=== PATIENT | female | born 1940 | race African-American/Black ===

== ENCOUNTER 2024-11-28 11:10 | Emergency (ER) | payer OTHER ==
[~2024-11-28] VITALS: Ht 167.6 cm; Wt 120.0 kg
[~2024-11-28 11:10] MED LIST: ALBU2.5V13 IH; ALBU6.7H15 INH; AMLO10TA80 MT; DABI150C PO; ESTR1PAT63 TD; FLUT15.844 BOTHNSTRLS; FURO40TA5 MT; HYDR-459 MT; HYDR2TAB7 MT; ISOS60TA76 MT; LYR25 MT; OMEP20CA14 MT; TOFA5TAB MT
[2024-11-28] MEDS: PIPERACILLIN/TAZO 3.375G/50ML 50 ML IV ONE (11:15)
[2024-11-28 11:30] VITALS: PULSE 96; RESP 36; O2SAT 98
[2024-11-28] MEDS: ALBUTEROL (0.083%) 2.5MG/3ML NEB HHN SCH (11:30)
[2024-11-28] MEDS: IPRATROPIUM BROMIDE (0.02%) 0.5MG/2.5ML NEB HHN STA (11:30)
[2024-11-28] MEDS: VANCOMYCIN 1G PREMIX 200 ML IV ONE (11:52)
[2024-11-28] MEDS: METHYLPREDNISOLONE SOD SUCC 125MG/2ML (ACT-O-VIAL) IV STA (11:52)
[2024-11-28 11:55] VITALS: PULSE 98; RESP 20; O2SAT 100
[2024-11-28 12:14] VITALS: PULSE 97; RESP 15; O2SAT 100
[2024-11-28 12:16] LABS: CHLORIDE 106 mEq/L (98-107); POTASSIUM 4.5 mEq/L (3.5-5.1); SODIUM 142 mEq/L (136-145)
[2024-11-28 12:17] LABS: CALCIUM 9.3 mg/dL (8.7-10.4); CARBON DIOXIDE 27 mEq/L (21-32)
[2024-11-28 12:20] LABS: BASOPHILS % 0.3 % (0.0-2.0); EOSINOPHILS % 0.4 % (0.0-5.0); HEMATOCRIT. 44.6 % (36.0-48.0); HEMOGLOBIN. 14.9 g/dL (12.0-16.0); LYMPHOCYTES % 10.9 % (20.0-50.0); MEAN CORPUSCULAR HEMOGLOBIN 31.3 pg (28.0-32.0); MEAN CORPUSCULAR HGB CONC 33.5 g/dL (31.0-37.0); MEAN CORPUSCULAR VOLUME 93.4 fL (81.0-99.0); MEAN PLATELET VOLUME 8.7 fl (7.4-10.4); MONOCYTES % 14.4 % (2.0-8.0); PLATELET 156 x1000/uL (130-400); RED BLOOD CELL COUNT 4.77 mill/uL (4.2-5.4); RED CELL DISTRIBUTION WIDTH 15.2 % (11.6-14.6); WHITE BLOOD COUNT 6.6 x1000/uL (4.5-11.0)
[2024-11-28 12:22] LABS: GLUCOSE 89 mg/dL (70-105); UREA NITROGEN BLOOD 15 mg/dL (9-23)
[2024-11-28 12:23] LABS: TROPONIN I HIGH SENSITIVITY 10 ng/L (3.0-34)
[2024-11-28 12:24] LABS: ALANINE AMINOTRANSFERASE 12 IU/L (10-49); ALBUMIN 4.3 g/dL (3.2-4.8); ASPARTATE AMINOTRANSFERASE 36 IU/L (<34); BILIRUBIN DIRECT 0.2 mg/dL (<=3.0); BILIRUBIN TOTAL 0.8 mg/dL (0.1-1.0); PROTEIN TOTAL 6.9 g/dL (6.0-8.3)
[2024-11-28] MEDS: SODIUM CHLORIDE 0.9% 1,000 ML IV ONE (12:26)
[2024-11-28 12:28] LABS: BG CARBOXYHEMOGLOBIN 2.2 % (0.5-1.5); BG DEOXYHEMOGLOBIN 2.8 % (0.0-5.0); BG FRACTION INSPIRED OXYGEN 60; BG HCO3 ACT 28.8 mmol/L (21.0-28.0); BG OXYGEN SATURATION 97.1 % (94.0-98.0); BG PCO2 48.5 mmHg (32.0-45.0); BG PH 7.392 (7.350-7.450); BG SAMPLE SITE RIGHT RADIAL; BG TOTAL HEMOGLOBIN 14.8 g/dL (12.0-16.0); BG VENT MODE HHN TX
[2024-11-28] MEDS: PIPERACILLIN/TAZO 3.375G/50ML 50 ML IV NR (13:00)
[2024-11-28 16:18] LABS: PROTHROMBIN TIME 11.4 sec (9.6-11.0)
[2024-11-28 16:20] LABS: TROPONIN I HIGH SENSITIVITY 13 ng/L (3.0-34)
[2024-11-28] MEDS: MORPHINE SULFATE 4 MG/ML INJ (FOR IV/IM USE) IV ONE (16:24)
[2024-11-28 19:00] VITALS: BP 149/88; PULSE 94; RESP 20; TEMP 36.83628; O2SAT 96
== END 2024-11-28 19:29 | disposition short-term general hospital (02) ==
LOC: ER 11:12 → EDBEDREQTM 18:28 → EDBEDREQ 18:28 → ER 19:29
DX: J44.1 Chronic obstructive pulmonary disease with (acute) exacerbation (principal); J18.9 Pneumonia, unspecified organism; I10 Essential (primary) hypertension; I51.9 Heart disease, unspecified; Z88.8 Allergy status to other drugs, medicaments and biological substances; Z79.899 Other long term (current) drug therapy
CPT/HCPCS: 99291; 93970; 96365; 96366; 96375; 71045; 96367; 96361; 80076; 80048; 83880; 83605; 85025; 85610; 87040; 84484; 87804 ×2; 36415; 84145; 94640; 82805; 82375; 93005; 36600; J2919; J2543; J3370; J2270; J7030